=== PATIENT | male | born 1970 | race Caucasian/White ===

== ENCOUNTER → 2016-08-03 | Outpatient (CLI) | payer OTHER ==
[~2016-08-03] MED LIST: ASCO500C43 PO; ASCOGRA PO; MULT-506 PO; ONDA8TAB6 PO
--- NOTE | 2016-08-03 15:41 | DIAGNOSTIC IMAGING REPORT ---
CAROTID ARTERY ULTRASOUND CLINICAL HISTORY: Tongue cancer COMPARISON STUDY: Neck CT May 20, 2016. TECHNIQUE: Real-time, grayscale, and color Doppler sonography of the carotid and vertebral arteries was performed. Images were viewed in the transverse and longitudinal planes. FINDINGS: There is mild atherosclerotic plaque. Velocity measurements are listed below. COMMON CAROTID PEAK SYSTOLIC VELOCITY (CM/S): RIGHT 112 LEFT 123 ICA PEAK SYSTOLIC VELOCITY (CM/S): RIGHT 114 LEFT 147 The systolic ratios between the internal to common carotid arteries are normal. Despite mildly elevated velocities within the left internal carotid artery, the systolic ratio is normal and the grayscale images do not demonstrate a significant stenosis. Antegrade flow is seen in the vertebral arteries. The external carotid arteries are patent. Blood pressure in the right arm measured 146/83. Blood pressure in the left arm measured 156/81. No was made of multiple pathologically enlarged left-sided cervical lymph nodes, as shown on prior CT. Several these are necrotic. IMPRESSION: 1. No evidence of a hemodynamically significant stenosis. 2. Pathologically enlarged left-sided cervical lymph nodes, as shown on CT of May 20, 2016, consistent with yakov spread of disease. Electronically signed by: Adam Valadez M.D. 08/03/2016 3:40 PM Dictated Date/Time: 08/03/2016 3:33 PM
== END | disposition home or self-care (01) ==
LOC: C.ULTR 14:47
PROVIDERS: ATTEND Radiology Radiation Oncology
DX: C01 Malignant neoplasm of base of tongue (principal); R59.0 Localized enlarged lymph nodes

== ENCOUNTER → 2016-08-12 | Outpatient (CLI) | payer OTHER ==
--- NOTE | 2016-08-12 09:24 | SWALLOWING EVALUATION ---
REFERRING SPEECH PATHOLOGIST: Katharina Thomas MS, CCC-AUTOMOTIVE BRAKE TECHNICIAN/L HISTORY: This 46 year-old male was referred for a VFSS at [facility] in order to establish a baseline of his swallowing function as he completes a course of RT. 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 Currently the patient's diet level is regular as tolerated. The patient reports that he varies what he eats depending on his discomfort and that he has maintained his weight well. At the time of the study the patient reports that he is having no odynophagia. PROCEDURE: The patient was seen in the Radiology Department of [facility] for the VFSS. Cursory examination of the oral cavity revealed adequate dentition. Movement of the articulators was WNL. The patient stood for the procedure and was viewed in both the Anterior-Posterior (A-P) and Lateral planes. Volitional phonation exercises completed in the A-P plane revealed bilateral vocal fold movement and vocal intensity within functional limits. In the lateral plane, the patient was given the following boluses: 1 tsp. thin liquid barium x 2, single swallow thin liquid barium self-presented from a cup, sequential swallows of thin liquid barium self-presented from a cup, 1 tsp. nectar-thick liquid barium, single swallow nectar-thick liquid barium self-presented from a cup, 1 tsp. barium pudding, and 1 club cracker with barium pudding. The patient was then repositioned into the A-P plane and given 1 tsp. barium pudding. RESULTS: Oral Stage: No interlabial bolus escape. Cohesive bolus between tongue and palate during oral bolus hold exercise. Timely and efficient mastication. Brisk lingual movement for bolus transfer. Diffuse lining of oral structures after the swallow. Initiation of the pharyngeal swallow when the bolus head was at the posterior angle of the ramus. The oral stage of the swallow was WNL. Pharyngeal Stage: No bolus between the soft palate and the pharyngeal wall. Laryngeal elevation, anterior hyoid excursion, epiglottic inversion, laryngeal vestibular closure, and pharyngeal stripping wave were all complete. Pharyngeal contraction (AP plane), distention and duration of PES opening, and tongue base retraction were all complete. There was no pharyngeal bolus retention. There was no penetration or aspiration during this study. The pharyngeal stage of the swallow was WNL. Esophageal Stage: A pudding bolus transited the esophagus without evidence of retention. SUMMARY/RECOMMENDATIONS: This patient presents with normal oral-pharyngeal swallowing mechanics and no s/s esophageal dysfunction. The following is recommended: 1. Regular as tolerated 2. Continued f/u with AUTOMOTIVE BRAKE TECHNICIAN services throughout treatment and at one month post treatment follow-up. Pt will need instruction re: exercises to maintain strength and ROM of swallowing musculature s/p RT. A summary of the results and recommendations was discussed with the patient immediately following the study. He verbalized understanding. Thank you for referral of this patient. Please contact me at if any additional information is needed.
--- NOTE | 2016-08-12 11:07 | DIAGNOSTIC IMAGING REPORT ---
VIDEO SWALLOW STUDY CLINICAL HISTORY: Head and neck cancer. COMPARISON STUDY: No priors. Fluoroscopy time: 1.3 minutes. FINDINGS: Fluoroscopic guidance was provided to the Department of Speech Pathology in performing a video swallow study. The patient consumed barium-impregnated pudding, cracker with paste, nectar-thick liquid, and thin barium while the swallowing mechanism was observed in real-time. No penetration or aspiration was seen with any of the sampled textures. The swallowing mechanism was normal. IMPRESSION: No penetration or aspiration was seen. See dedicated speech pathology report for detailed findings and recommendations. Dictated: 08/12/2016 9:19 AM Transcribed: 08/12/2016 11:07 AM [email or web address] Electronically signed by: Kahlil Padron M.D. 08/12/2016 11:09 AM Dictated Date/Time: 08/12/2016 9:19 AM
== END | disposition home or self-care (01) ==
LOC: C.RAD 08:04
PROVIDERS: ATTEND Radiology Radiation Oncology
DX: C01 Malignant neoplasm of base of tongue (principal)

== ENCOUNTER → 2016-09-30 | Outpatient (CLI) | payer OTHER ==
[~2016-09-30] MED LIST changes: -ASCOGRA PO
[2016-09-30 10:17] VITALS: BP 131/81; PULSE 76; TEMP 36.9; O2SAT 98
--- NOTE | 2016-09-30 11:32 | Radiation Oncology Follow-Up ---
Radiation Oncology Follow-Up Date of Visit Sep 30, 2016. (Philomena Pritchett PA-C) Reason For Visit One-month follow-up (Philomena Pritchett PA-C) Radiation Completion Date 09/06/16 (Philomena Pritchett PA-C) Diagnosis (1) Oropharyngeal cancer Status: Acute Onset Date: 05/30/2016 Location: base of tongue Histology Subtype: squamous cell carcinoma, P 16 positive Stage: IV Permanent Comment: STAGING: Left base of tongue, SCC, p16 positive, [id number], stage JAMIE TREATMENT: Status post completion of combined radiation and chemotherapy. Radiation completed 09/06/2016 received 7000 cGy. Chemotherapy therapy comprised of cisplatin. Last Edited By: Philomena Pritchett on Sep 19, 2016 14:21 (Philomena Pritchett PA-C) History of Present Illness Mr. Barajas is a 45 year old male who recently transferred his care to Dr. Ballesteros (PCP). At the time of his visit, he did complain of a neck mass. On 05/20/2016, he did undergo a CT neck with contrast which did reveal: "IMPRESSION : 1.In the left neck there are 2 moderate-sized clusters of cystic lymph nodes, as described above. No primary submucosal or thyroid mass is identified. Differential diagnosis includes metastases from neoplasm such as occult nasopharyngeal/ squamous cell carcinoma, although an inflammatory/infectious process is also in the differential diagnosis. Aspiration biopsy may be useful for further assessment. Suggest otolaryngology consultation as part of further evaluation. 2. In the right submandibular space (level 2 B) there is a single mildly enlarged irregular lymph node measuring 11 mm in short axis dimension." The patient was seen by Dr. Selvin Hackett from ENT. Dr. Hackett performed an examination which did reveal some left tongue base fullness but was otherwise unremarkable. Dr. Hackett performed a FNA biopsy of the cervical lymph nodes to confirm the diagnosis. He did undergo a biopsy of a left level II lymph node on 05/30/2016 which confirmed a diagnosis of squamous cell carcinoma. He did undergo a PET/CT scan on 06/09/2016 which did reveal asymmetric hypermetabolic uptake in the left tongue base as well as hypermetabolic left cervical lymph nodes and less intense hypermetabolic right cervical lymph nodes. The patient subsequently underwent biopsies on 06/22/2016 on the left cervical lymph nodes which came back positive for squamous cell carcinoma that was p16 positive. The patient also underwent a biopsy of the right cervical lymph nodes on 2016 which were negative. (Pathology reports below). The patient was seen at the multidisciplinary head and neck cancer tumor clinic in [place], [place] at the [facility]. The patient was specifically seen by Dr. Coffey and Dr. Ornelas from ENT. The final recommendation was for consideration of definitive chemotherapy and radiation therapy for treatment of the patients oropharyngeal head and neck cancer. The patient was seen in consultation by Dr. Calin Jacobs for medical oncology at [facility] who did recommend definitive chemotherapy and radiation therapy. He has recommended weekly cis-oglala sioux chemotherapy with radiation therapy. We are now seeing the patient consultation discussed the role of radiation therapy. He underwent combined radiation and chemotherapy. Radiation was completed 09/06. He received 7000 cGy. Chemotherapy was comprised of cisplatin. (Philomena Pritchett PA-C) Interim History He's been doing well over the past 3 weeks. His taste has improved and his back 50%. He does continue to have dysphagia. He has a pain level of 3-4 with swallowing. And there is a general discomfort at level II. This does not require any medications. No longer uses any pain medication prior to eating. There is dryness of the mouth and throat. He is using Biotene products. He continues to use the dental trays given by his dentist. He does have a small amount of swelling under his chin. The skin irritation has completely resolved. He has seen Dr. Jacobs in medical oncology. A PET scan has been ordered for December 07. (Philomena Pritchett PA-C) Allergies Uncoded Allergies: NKA (Allergy, Unknown, 03/24/03) Home Medications Scheduled Ascorbic Acid (Vitamin C 500 mg), 1,000 MG PO DAILY Multivitamin (Multivitamin), 1 TAB PO DAILY Scheduled PRN Ondansetron Hcl (Zofran), 8 MG PO Q6 PRN for Nausea Review of Systems Gastrointestinal: Symptoms: WNL GI Comments: Eating foods of all consistencies now; Oral: Other Oral Symptoms: Sore throat sensation continues, but much improved;no choking; Respiratory: Symptoms: WNL Urinary: Symptoms: WNL Skin: Symptoms: Dry Desquamation, No Problems Other Skin Symptoms: Very tiny area of dry desq. on left side of neck; denies pain in area; Additional Notes: He completed a distress management report and answered "no" to all questions. (Philomena Pritchett PA-C) Physical Exam Vital Signs Date Time Temp Pulse Resp B/P Pulse Ox O2 Delivery O2 Flow Rate FiO2 09/30/16 10:17 36.9 76 12 131/81 98 General Appearance: no apparent distress Eyes: normal inspection, EOMI ENT: hearing grossly normal, pharynx normal Neck: no adenopathy, thyroid normal, + pertinent finding (resolving hyperpigmentation. There is no wet or dry desquamation. There is mild submental edema.) Respiratory/Chest: lungs clear, no respiratory distress, no accessory muscle use Cardiovascular: regular rate, rhythm, no gallop, no murmur Neurologic/Psychiatric: no motor/sensory deficits, alert, normal mood/affect Skin: warm/dry Lymphatic: no adenopathy (Philomena Pritchett PA-C) Assessment & Plan Plan: Patient cells seen and examined by Dr. Jacobs. We discussed the small amount of edema is submental area. I suggested light massage. We also discussed lymphedema clinic. Patient currently does not wish to be referred to the lymphedema clinic. He is going to continue the Biotene products for the xerostomia. Continue the dental trays given by the dentist. In follow-up exams by the dentist. He seen Dr. Jacobs in medical oncology and is scheduled for a PET scan on 12/07/2016. He also stated he plans to continue follow-up with Dr. Hackett. We asked him to return to our office in 4 months. I did review with him the importance of follow-up with ENT and future recheck scopings. (Philomena Pritchett PA-C) I agree with note created by Philomena Pritchett PA-C. I reviewed the patient's chart and information with her. I have examined and evaluated the patient. I reviewed relevant clinical information and answered the patient's and/or family' s questions. (Veeral. Jacobs MD) Total Time In Follow-Up I spent 20 minutes speaking to the patient performing examination. I spent 15 minutes reviewing information and completing this note. (Philomena Pritchett PA-C) I spent 15 minutes examining and counseling the patient. (Veeral. Jacobs MD) Copy To Selvin Hackett D.O.; Tata Ballesteros D.O.; Calin Jacobs M.D.
== END | disposition home or self-care (01) ==
LOC: C.ONC 10:04
PROVIDERS: ATTEND Physician Assistant Medical
DX: Z08 Encounter for follow-up examination after completed treatment for malignant neoplasm (principal); Z92.3 Personal history of irradiation; Z85.818 Personal history of malignant neoplasm of other sites of lip, oral cavity, and pharynx

== ENCOUNTER → 2017-03-17 | Outpatient (CLI) | payer OTHER ==
[2017-03-17 08:26] VITALS: BP 122/76; PULSE 76; TEMP 36.8; O2SAT 97
--- NOTE | 2017-03-17 11:12 | Radiation Oncology Follow-Up ---
Radiation Oncology Follow-Up Date of Visit Mar 17, 2017. Reason For Visit 6 month follow-up Radiation Completion Date finished 09-06-2016 Diagnosis (1) Oropharyngeal cancer Status: Resolved Onset Date: 05/30/2016 Location: base of tongue Histology Subtype: squamous cell carcinoma Stage: IV Permanent Comment: STAGING: Left base of tongue, SCC, p16 positive, [id number], stage JAMIE TREATMENT: Status post completion of combined radiation and chemotherapy. Radiation completed 09/06/2016 received 7000 cGy. Chemotherapy therapy comprised of cisplatin. Last Edited By: Philomena Pritchett on Sep 19, 2016 14:21 History of Present Illness Mr. Barajas is a 45 year old male who recently transferred his care to Dr. Ballesteros (PCP). At the time of his visit, he did complain of a neck mass. On 05/20/2016, he did undergo a CT neck with contrast which did reveal: "IMPRESSION : 1.In the left neck there are 2 moderate-sized clusters of cystic lymph nodes, as described above. No primary submucosal or thyroid mass is identified. Differential diagnosis includes metastases from neoplasm such as occult nasopharyngeal/ squamous cell carcinoma, although an inflammatory/infectious process is also in the differential diagnosis. Aspiration biopsy may be useful for further assessment. Suggest otolaryngology consultation as part of further evaluation. 2. In the right submandibular space (level 2 B) there is a single mildly enlarged irregular lymph node measuring 11 mm in short axis dimension." The patient was seen by Dr. Selvin Hackett from ENT. Dr. Hackett performed an examination which did reveal some left tongue base fullness but was otherwise unremarkable. Dr. Hackett performed a FNA biopsy of the cervical lymph nodes to confirm the diagnosis. He did undergo a biopsy of a left level II lymph node on 05/30/2016 which confirmed a diagnosis of squamous cell carcinoma. He did undergo a PET/CT scan on 06/09/2016 which did reveal asymmetric hypermetabolic uptake in the left tongue base as well as hypermetabolic left cervical lymph nodes and less intense hypermetabolic right cervical lymph nodes. The patient subsequently underwent biopsies on 06/22/2016 on the left cervical lymph nodes which came back positive for squamous cell carcinoma that was p16 positive. The patient also underwent a biopsy of the right cervical lymph nodes on 2016 which were negative. (Pathology reports below). The patient was seen at the multidisciplinary head and neck cancer tumor clinic in [place], [place] at the [facility]. The patient was specifically seen by Dr. Coffey and Dr. Ornelas from ENT. The final recommendation was for consideration of definitive chemotherapy and radiation therapy for treatment of the patients oropharyngeal head and neck cancer. The patient was seen in consultation by Dr. Calin Jacobs for medical oncology at [facility] who did recommend definitive chemotherapy and radiation therapy. He has recommended weekly cis-[place] chemotherapy with radiation therapy. We are now seeing the patient consultation discussed the role of radiation therapy. He underwent combined radiation and chemotherapy. Radiation was completed 09/06. He received 7000 cGy. Chemotherapy was comprised of cisplatin. Interim History He has been doing well over the past 6 months. He has noted no changes to his neck. His taste is steadily improving and he feels this has returned approximate 90%. He does have sensitivity to spicy foods. He has no difficulty with swallowing. There is no pain with swallowing. He has been seen in follow-up at medical oncology. He did have a PET scan which has shown no recurrence that was performed in February. He has not been back to ENT for recheck scoping. His appetite is good. His weight is stable. He has no complaints of dryness of the mouth. He has alopecia of his de jesus on the left side in the submental area. Allergies Uncoded Allergies: NKA (Allergy, Unknown, 03/24/03) Home Medications Scheduled Ascorbic Acid (Vitamin C 500 mg), 1,000 MG PO DAILY Multivitamin (Multivitamin), 1 TAB PO DAILY Review of Systems Gastrointestinal: Symptoms: WNL Oral: Symptoms: Scant Saliva/Dry Mouth Respiratory: Symptoms: WNL Urinary: Symptoms: WNL Skin: Symptoms: No Problems Physical Exam Vital Signs Date Time Temp Pulse Resp B/P (MAP) Pulse Ox O2 Delivery O2 Flow Rate FiO2 03/17/17 08:26 36.8 76 18 122/76 97 Pain: Side: Bilateral Patient Pain Scale: 0 - 10 Initial Pain Intensity: 0.0 General Appearance: no apparent distress Eyes: normal inspection, EOMI ENT: normal ENT inspection, hearing grossly normal, pharynx normal Neck: supple, no adenopathy, thyroid normal Respiratory/Chest: lungs clear, no respiratory distress, no accessory muscle use Cardiovascular: regular rate, rhythm, no gallop, no murmur Extremities: no pedal edema Neurologic/Psychiatric: no motor/sensory deficits, alert, normal mood/affect Additional Exam Notes: NPL examination performed by Dr. Jacobs. We obtained permission to proceed with a nasopharyngolaryngoscopy. We first apply afrin/lidocaine combination spray to the nares for local anesthesia. The scope was then inserted into the nostril. The nasal cavity and nasopharynx were visualized and no abnormalilities were noted. The scope was then advanced into the oropharynx and the base of tongue, epiglottis and vallecula were well visualized with no abnormalities. The scope was further advanced into the larynx and the vocal cords were well visualized. There was no restricted motion of the vocal cords. No lesions or masses were noted. The scope was slowly retracted and the patient tolerated the procedure well. Laboratory Studies Laboratory studies are followed by Dr. Jacobs and there is an order for a future TSH. Additional Studies Date/Time of Imaging Study Study Completed: 03/08/2017 10:58 AM ERN PACS Image Narrative EXAM PET CT SKULL BASE TO MID THIGH - 03/08/2017 10:58 am HISTORY Left lateral tongue carcinoma status post chemotherapy and radiation DATE OF DICTATION:03/08/2017 COMPARISON PET-CT 12/07/2016, 06/08/2016 TECHNIQUE Following the intravenous administration of approximately 8.78 mCi of F18-FDG and the oral administration of Gastrografin, PET/CT imaging was performed from the skull base to the mid thighs 73 minutes following the radiotracer injection. A separate acquisition of the head and neck was performed. The patient's glucose level at the time of radiotracer injection was 89mg/dL. This is a follow up PET/ CT for the above indication. FINDINGS HEAD / NECK: No FDG avid disease.No enlarged cervical lymph nodes. CHEST: No FDG avid disease. No pericardial effusion. There is atherosclerosis in the LAD. 6 mm nodule in the right upper lobe is stable. No focal consolidation or pleural effusion. No mediastinal lymphadenopathy. Few prominent axillary nodes are not FDG avid, stable. ABDOMEN/PELVIS: No FDG avid disease. Gastrointestinal and genitourinary uptake is physiologic. Unenhanced liver, spleen, gallbladder and pancreas are unremarkable. No focal adrenal nodules. No hydronephrosis. Left renal is stable. No acute findings in the bowel. No significant abdominopelvic lymphadenopathy. MUSCULOSKELETAL / OTHER: No focal suspicious osseous lesions. IMPRESSION No FDG avid disease. Authenticated By Authenticating Date Authenticating Time Reading Providers(s) ANDRÉS GARCIA MD 03-08-2017 12:20 ANDRÉS GARCIA MD Assessment & Plan Plan: The patient was seen and examined by Dr. Jacobs. And NPL examination was performed. The patient states that it is planned that he'll be having a PET scan next February. We strongly encouraged him to get an ENT visit and continue follow-up with ENT also. He is not in favor of frequent x-ray examinations. I reviewed with him that the NPL examination is a local direct visual evaluation. PET scans are used for watching for recurrence. We discussed that a PET scan would not see a lesion less than 1 cm. Without understanding he did want to go forward with an NPL examination today. He was given a follow-up appointment with our office in 6 months. He was encouraged to go forward with a appointment with ENT also. Assessment & Plan (Attending) ADDENDUM: I agree with note created by Philomena Pritchett PA-C. I reviewed the patient's chart and information with her. I have examined and evaluated the patient. I reviewed relevant clinical information and answered the patient's and /or family's questions. DIVERSITY INTERN Total Time In Follow-Up I spent 20 minutes speaking to the patient and performing examination. I spent 15 minutes reviewing information in completing this note. [place] Total Time (Attending) In Follow-Up I spent 20 minutes examining and counseling the patient which included the NPL exam. I spent 5 minutes completing this note. DIVERSITY INTERN Copy To Selvin Hackett D.O.; Tata Ballesteros D.O.; Jacqueline Jacobs MD
== END | disposition home or self-care (01) ==
LOC: C.ONC 08:18
PROVIDERS: ATTEND Physician Assistant Medical
DX: Z08 Encounter for follow-up examination after completed treatment for malignant neoplasm (principal); Z92.3 Personal history of irradiation; Z85.819 Personal history of malignant neoplasm of unspecified site of lip, oral cavity, and pharynx

== ENCOUNTER → 2017-09-19 | Outpatient (CLI) | payer OTHER ==
[~2017-09-19] MED LIST changes: -ONDA8TAB6 PO
[2017-09-19 14:14] VITALS: BP 123/78; PULSE 71; TEMP 36.6; O2SAT 100
--- NOTE | 2017-09-19 14:57 | Radiation Oncology Procedure ---
Radiation Oncology Procedure Date of Procedure Sep 19, 2017. Procedure Nasopharyngolaryngoscopy Pre & Post Diagnosis Pre Procedure Diagnosis: Head / Neck Cancer (In remission) Post Procedure Diagnosis: Head / Neck Cancer (In remission) Procedure Note Consent Obtained: Written Time of Procedure: 14:50 Procedure Time Out: side/site verified, patient ID confirmed, appropriate equipment obtained Performed By: Dr. Adriane Jacobs M.D. Director Of Litigation(s): Philomena Pritchett PA-C Medication(s): Afrin/Topical Lidocaine Clinical Focus of Exam: nasopharynx, oropharynx, larynx Findings: Normal nasal cavity & sinuses, Normal nasopharynx, Normal oropharynx , Normal larynx Estimated Blood Loss: none Specimens: none Complications: none Time Spent: 15 minutes
--- NOTE | 2017-09-19 16:15 | Radiation Oncology Follow-Up ---
Radiation Oncology Follow-Up Date of Visit Sep 19, 2017. Reason For Visit Six-month follow-up Radiation Completion Date finished 09-06-2016 Diagnosis (1) Oropharyngeal cancer Status: Resolved Onset Date: 05/30/2016 Location: Base of the tongue Histology Subtype: Squamous cell carcinoma Stage: IV Permanent Comment: STAGING: Left base of tongue, SCC, p16 positive, [id number], stage JAMIE TREATMENT: Status post completion of combined radiation and chemotherapy. Radiation completed 09/06/2016 received 7000 cGy. Chemotherapy therapy comprised of cisplatin. Last Edited By: Philomena Pritchett on Sep 19, 2016 14:21 History of Present Illness Mr. Barajas who transferred his care to Dr. Ballesteros (PCP). At the time of his visit, he did complain of a neck mass. On 05/20/2016, he did undergo a CT neck with contrast which did reveal: "IMPRESSION: 1.In the left neck there are 2 moderate-sized clusters of cystic lymph nodes, as described above. No primary submucosal or thyroid mass is identified. Differential diagnosis includes metastases from neoplasm such as occult nasopharyngeal/ squamous cell carcinoma , although an inflammatory/infectious process is also in the differential diagnosis. Aspiration biopsy may be useful for further assessment. Suggest otolaryngology consultation as part of further evaluation. 2. In the right submandibular space (level 2 B) there is a single mildly enlarged irregular lymph node measuring 11 mm in short axis dimension." The patient was seen by Dr. Selvin Hackett from ENT. Dr. Hackett performed an examination which did reveal some left tongue base fullness but was otherwise unremarkable. Dr. Hackett performed a FNA biopsy of the cervical lymph nodes to confirm the diagnosis. He did undergo a biopsy of a left level II lymph node on 05/30/2016 which confirmed a diagnosis of squamous cell carcinoma. He did undergo a PET/CT scan on 06/09/2016 which did reveal asymmetric hypermetabolic uptake in the left tongue base as well as hypermetabolic left cervical lymph nodes and less intense hypermetabolic right cervical lymph nodes. The patient subsequently underwent biopsies on 06/22/2016 on the left cervical lymph nodes which came back positive for squamous cell carcinoma that was p16 positive. The patient also underwent a biopsy of the right cervical lymph nodes on 2016 which were negative. (Pathology reports below). The patient was seen at the multidisciplinary head and neck cancer tumor clinic in [place], [place] at the [facility]. The patient was specifically seen by Dr. Coffey and Dr. Ornelas from ENT. The final recommendation was for consideration of definitive chemotherapy and radiation therapy for treatment of the patients oropharyngeal head and neck cancer. The patient was seen in consultation by Dr. Calin Jacobs for medical oncology at [facility] who did recommend definitive chemotherapy and radiation therapy. He has recommended weekly cis-chenega chemotherapy with radiation therapy. We are now seeing the patient consultation discussed the role of radiation therapy. He underwent combined radiation and chemotherapy. Radiation was completed 09/06. He received 7000 cGy. Chemotherapy was comprised of cisplatin. Interim History He has been doing well over the past 6 months. He feels that his taste is completely back to normal. He does have some dryness of the mouth. He denies any pain of the throat. No difficulty with swallowing. No pain on range of motion of the neck. No difficulty with opening the mouth. He is noted no swelling of the neck or tongue. He has not been seen in follow-up by ENT or medical oncology. Allergies Uncoded Allergies: NKA (Allergy, Unknown, 03/24/03) Home Medications Scheduled Ascorbic Acid (Vitamin C 500 mg), 1,000 MG PO DAILY Multivitamin (Multivitamin), 1 TAB PO DAILY Review of Systems Gastrointestinal: Symptoms: WNL Oral: Symptoms: Scant Saliva/Dry Mouth Other Oral Symptoms: "occ difficulty swallowing something really dry " , occ dry mouth Respiratory: Symptoms: WNL Urinary: Symptoms: WNL Skin: Symptoms: No Problems Physical Exam Vital Signs Date Time Temp Pulse Resp B/P (MAP) Pulse Ox O2 Delivery O2 Flow Rate FiO2 09/19/17 14:14 36.6 71 18 123/78 100 Fatigue: None General Appearance: no apparent distress Eyes: normal inspection, EOMI ENT: normal ENT inspection, hearing grossly normal, + pertinent finding (There are no visible or palpable lesions of the tongue, floor of the mouth, buccal mucosa, soft or hard palate. The mouth does appear dry. There are no exudates. NPL examination performed by Dr. Jacobs.) Neck: supple, no adenopathy, thyroid normal, no JVD Respiratory/Chest: lungs clear, no respiratory distress, no accessory muscle use Cardiovascular: regular rate, rhythm, no gallop, no murmur Extremities: no pedal edema Neurologic/Psychiatric: no motor/sensory deficits, alert, normal mood/affect Skin: warm/dry Pain Management Patient Reports Pain: No Side: Bilateral Patient Preferred Pain Scale: 0 - 10 Initial Pain Intensity: 0.0 Pain Management Plan He denies pain therefore requires no pain management. Laboratory Laboratory Results: not applicable Pathology Pathology Results: were reviewed, and pertinent findings noted in HPI Imaging Imaging Studies: were reviewed, and pertinent findings noted in HPI Imaging Comments Last PET scan was March 08, 2017. There was no FDG avid disease. Assessment & Plan Plan: Patient was seen and examined by Dr. Jacobs. NPL examination was performed. We have reviewed with him that he should continue follow-up with ENT it was recommended that he see ENT in 6 months and then follow-up with our office in 1 year. He does have a follow-up appointment with medical oncology. Recheck scanning per Dr. Jacobs. He may call our office if he has any questions or concerns in the interim. Assessment & Plan (Attending) I agree with note created by Philomena Pritchett PA-C. I reviewed the patient's chart and information with her. I have examined and evaluated the patient. I reviewed relevant clinical information and answered the patient's and/or family' s questions. FURNITURE REPAIR TECHNICIAN Total Time In Follow-Up I spent 25 minutes speaking to the patient and performing examination. I spent 15 minutes reviewing information and completing this note. AK Total Time (Attending) In Follow-Up I spent 15 minutes examining and counseling the patient. NPL exam documented in separate note. FURNITURE REPAIR TECHNICIAN Copy To Selvin Hackett D.O.; Tata Ballesteros D.O.; Calni Jacobs M.D.
== END | disposition home or self-care (01) ==
LOC: C.ONC 14:00
PROVIDERS: ATTEND Physician Assistant Medical
DX: Z08 Encounter for follow-up examination after completed treatment for malignant neoplasm (principal); Z92.3 Personal history of irradiation; Z85.818 Personal history of malignant neoplasm of other sites of lip, oral cavity, and pharynx